=== PATIENT | female | born 1985 | race American Indian/Alaskan Native ===

== ENCOUNTER 2016-09-04 10:53 | Inpatient (IN) | payer OTHER ==
[2016-09-04 12:26] LABS: Hematocrit 21.2 % (30.3-42.9); Hemoglobin 6.4 gm/dl (10.1-14.3); Mean Corpuscular HGB Conc 30 % (30-34); Mean Corpuscular Volume 74 fl (79-97); Platelet Count 328 K/mm3 (140-440); Red Blood Count 2.86 M/mm3 (3.65-5.03); White Blood Count 2.9 K/mm3 (4.5-11.0)
[2016-09-04 12:27] LABS: Mean Corpuscular Hemoglobin 22 pg (28-32); Red Cell Distribution Width 31.3 % (13.2-15.2)
[2016-09-04 13:17] LABS: Basophils % (Manual) 0 % (0.0-1.8); Blastocytes % (Manual) 0 %
[2016-09-04 13:18] LABS: Anisocytosis 2+; Diff Status Complete; Elliptocytes Rare; Helmet Cells Rare; Hypochromasia 2+; Microcytosis 1+; Ovalocytes Few; Poikilocytosis 2+; Polychromasia 1+; Stomatocytes Rare; Target Cells Rare; Tear Drop Cells Few
[2016-09-04] MEDS ORDERED: NACL 0.9% 500 ML 500 ML IV ONE (20:40)
--- NOTE | 2016-09-04 21:10 | Emergency Department Report ---
ED Female HPI - General Chief complaint: Vaginal Bleeding Stated complaint: FELL DOWN STEPS/PASSED OUT Time Seen by Provider: 09/04/16 20:35 Source: patient, old records reviewed Mode of arrival: Ambulatory Limitations: No Limitations - History of Present Illness Initial comments: 31-year-old female with past medical history of pancreatitis, anemia, fibroids, and previous blood transfusion presents to the hospital complains of syncopal episode. Patient was walking down the stairs and states she felt lightheaded and passed out. She also has been experiencing dyspnea on exertion and fatigue. Patient having intermittent suprapubic abdominal pain, moderate in intensity and epigastric discomfort. No reports of nausea, vomiting, or dysuria. Patient has been bleeding continuously 1 month and using 1 pack (#28) of overnight pads every 3 days. Patient has not been compliant with her iron tablets. Patient does not follow up as outpatient with ENVIRONMENTAL TEST TECHNICIAN. Previous medical record review. Patient was admitted here January 2016 for acute pancreatitis secondary to alcohol use and signed out AMA. Patient states she has cut down on her alcohol intake and denies history of alcohol withdrawal tremors. - Related Data Home Medications Medication Instructions Recorded Confirmed Last Taken No Known Home Medications [No 09/04/16 09/04/16 Unknown Reported Home Medications] Allergies Allergy/AdvReac Type Severity Reaction Status Date / Time codeine Allergy Unknown Verified 09/04/16 11:30 ED Review of Systems ROS: Stated complaint: FELL DOWN STEPS/PASSED OUT Other details as noted in HPI Comment: All other systems reviewed and negative Other: Constitutional: No fevers chills Eyes: No eye pain visual changes ENT: No ear pain or throat pain Neck: Denies pain Respiratory: Denies cough wheezing Cardiovascular: Denies chest pain, palpitations GI: Denies abdominal pain, nausea, vomiting, diarrhea : Denies dysuria Musculoskeletal: Denies back pain Skin: Denies rash, lesions, erythema Neurologic: Denies headache, numbness, weakness Psychiatric: Denies suicidal ideation, hallucinations ED Past Medical Hx - Past Medical History Hx Congestive Heart Failure: No Hx Diabetes: No Hx Asthma: No Hx COPD: No Additional medical history: anemia. FIBROIDS. Alcohol abuse. Pancreatitis - Social History Smoking Status: Current Every Day Smoker Substance Use Type: Alcohol - Medications Home Medications: Home Medications Medication Instructions Recorded Confirmed Last Taken Type No Known Home Medications [No 09/04/16 09/04/16 Unknown History Reported Home Medications] ED Physical Exam - General Limitations: No Limitations - Other Other exam information: General: No limitations, patient is alert in no acute distress Head exam: Atraumatic, normocephalic Eyes exam: Normal appearance, pupils equal reactive to light, nonicteric sclera ENT: Moist mucous membrane, normal oropharynx Neck exam: Normal inspection, full range of motion Respiratory exam: Clear to auscultation bilateral, no wheezes, rales, crackles Cardiovascular: Normal rate and rhythm, normal heart sounds Abdomen: Soft, nondistended, mild epigastric tenderness, with normal bowel sounds, no rebound, or guarding Extremity: Full range of motion normal inspection no deformity Back: Normal Inspection, full range of motion, no tenderness Neurologic: Alert, oriented x3, cranial nerves intact, no motor or sensory deficit Psychiatric: normal affect, normal mood Skin: Warm, dry, intact ED Course Vital Signs 09/04/16 09/04/16 09/04/16 11:30 14:53 19:38 Temperature 98.3 F 97.7 F Pulse Rate 91 H 95 H 93 H Respiratory 18 16 20 Rate Blood Pressure 100/64 Blood Pressure 118/70 121/82 [Right] O2 Sat by Pulse 100 100 100 Oximetry - Consultations Consultation #1: 09/04/16 20:[address] Sandra Walker ENVIRONMENTAL TEST TECHNICIAN environmental compliance technician. Request ultrasound and hospitalist admission. They will consult. ED Medical Decision Making - Lab Data Result diagrams: 09/04/16 11:44 Lab Results 09/04/16 09/04/16 09/04/16 Range/Units 11:44 11:44 11:44 WBC 2.9 L (4.5-11.0) K/mm3 RBC 2.86 L (3.65-5.03) M/mm3 Hgb 6.4 L (10.1-14.3) gm/dl Hct 21.2 L (30.3-42.9) % MCV 74 L (79-97) fl MCH 22 L (28-32) pg MCHC 30 (30-34) % RDW 31.3 H (13.2-15.2) % Plt Count 328 (140-440) K/mm3 Lymph % (Auto) [employer] [place] % (Auto) [employer] Eos % (Auto) [employer] Server Baso % (Auto) [employer] Server Lymph # [employer] [place] # [employer] Eos # [employer] Server Baso # [employer] Server Add Manual Diff Complete Total Counted 100 Seg Neutrophils % [employer] Seg Neuts % (Manual) 40.0 (40.0-70.0) % Band Neutrophils % 0 % Lymphocytes % (Manual) 56.0 H (13.4-35.0) % Reactive Lymphs % (Man) 0 % Monocytes % (Manual) 0 (0.0-7.3) % Eosinophils % (Manual) 4.0 (0.0-4.3) % Basophils % (Manual) 0 (0.0-1.8) % Metamyelocytes % 0 % Myelocytes % 0 % Promyelocytes % 0 % Blast Cells % 0 % Nucleated RBC % 1.0 H (0.0-0.9) % Seg Neutrophils # [employer] Seg Neutrophils # Man 1.2 L (1.8-7.7) K/mm3 Band Neutrophils # 0.0 K/mm3 Lymphocytes # (Manual) 1.6 (1.2-5.4) K/mm3 Abs React Lymphs (Man) 0.0 K/mm3 Monocytes # (Manual) 0.0 (0.0-0.8) K/mm3 Eosinophils # (Manual) 0.1 (0.0-0.4) K/mm3 Basophils # (Manual) 0.0 (0.0-0.1) K/mm3 Metamyelocytes # 0.0 K/mm3 Myelocytes # 0.0 K/mm3 Promyelocytes # 0.0 K/mm3 Blast Cells # 0.0 K/mm3 WBC Morphology Not Reportable Hypersegmented Neuts Not Reportable Hyposegmented Neuts Not Reportable Hypogranular Neuts Not Reportable Smudge Cells Not Reportable Toxic Granulation Not Reportable Toxic Vacuolation Not Reportable Dohle Bodies Not Reportable Pelger-Huet Anomaly Not Reportable Sarah Rods Not Reportable Platelet Estimate Appears normal Clumped Platelets Not Reportable Plt Clumps, EDTA Not Reportable Large Platelets Not Reportable Giant Platelets Not Reportable Platelet Satelliting Not Reportable Plt Morphology Comment Not Reportable RBC Morphology Not Reportable Dimorphic RBCs Not Reportable Polychromasia 1+ Hypochromasia 2+ Poikilocytosis 2+ Anisocytosis 2+ Microcytosis 1+ Macrocytosis Not Reportable Spherocytes Not Reportable Pappenheimer Bodies Not Reportable Sickle Cells Not Reportable Target Cells Rare Tear Drop Cells Few Ovalocytes Few Stomatocytes Rare Helmet Cells Rare Farris-[place] Bodies Not Reportable [place] Rings Not Reportable Ricardo Cells Not Reportable Bite Cells Not Reportable Crenated Cell Not Reportable Elliptocytes Rare Acanthocytes (Spur) Not Reportable Rouleaux Not Reportable Hemoglobin C Crystals Not Reportable Schistocytes Not Reportable Malaria parasites Not Reportable Armando Bodies Not Reportable Hem Pathologist Commnt No HCG, Quant < 2 (0-4) mIU/mL Blood Type A POSITIVE Antibody Screen TNR WENDY Antibody Screen Negative Crossmatch See Detail - EKG Data -: EKG Interpreted by Me (nsr rate 100, ant t wave inv, prolonged qt) - Radiology Data Radiology results: report reviewed (US transvag/pelvic pending) - Medical Decision Making Patient had a syncopal episode secondary to symptomatic anemia. Patient be admitted to the hospital for for blood transfusion. ENVIRONMENTAL TEST TECHNICIAN has been consult. 2 units of PRBCs ordered and PENDING AT DISPOSITION - Differential Diagnosis anemia, arrhythmia, fibroids Critical Care Time: No Critical care attestation.: If time is entered above; I have spent that time in minutes in the direct care of this critically ill patient, excluding procedure time. ED Disposition Clinical Impression: Menorrhagia, Symptomatic anemia, Syncope, Fibroids Disposition: DC-09 OP ADMIT IP TO THIS HOSP Is pt being admited?: Yes Condition: Stable Time of Disposition: 21:15 (Dr Saleem/hosp)
[2016-09-04] MEDS ORDERED: MILK OF MAGNESIA PO PRN (21:39)
[2016-09-04] MEDS ORDERED: TYLENOL PO PRN (21:39)
[2016-09-04] MEDS ORDERED: ZOFRAN IV PRN (21:39)
[2016-09-04] MEDS ORDERED: MORPHINE IV PRN (21:39)
[2016-09-04] MEDS ORDERED: DULCOLAX PR PRN (21:39)
--- NOTE | 2016-09-04 21:43 | History and Physical Report ---
History of Present Illness Date of examination: 09/04/16 Date of admission: 09/04/16 Chief complaint: abnormal uterine bleeding, Generalized weakness,fatigue,and lightheadedness History of present illness: Patient is 31-year-old with history of uterine fibroids with menorrhagia. She presents with a 4 weeks of daily heavy abnormal uterine bleeding. She states she has been bleeding every day for 4 weeks heavy bleeding with clots. She now complains of generalized weakness, fatigue lightheadedness for 2 weeks. She denies any chest pain shortness of breath. In Emergency department hemoglobin was 6.4. She is been admitted for blood transfusion and further management. Ship/Rec/Doc Control consulted for evaluation. Past History Past Medical History: other (Uterine fibroids, menorrhagia,alcoholic pancreatitis) Past Surgical History: No surgical history Social history: , lives with family, smoking (half pack cigarettes a day) , alcohol abuse (once a week), full code Medications and Allergies Allergies Allergy/AdvReac Type Severity Reaction Status Date / Time codeine Allergy Unknown Verified 09/04/16 11:30 Home Medications Medication Instructions Recorded Confirmed Last Taken Type No Known Home Medications [No 09/04/16 09/04/16 Unknown History Reported Home Medications] Review of Systems All systems: negative (no chest pain, no headache, no urinary symptoms, no fever. All other systems reviewed and are negative) Exam - Physical Exam Narrative exam: General appearance: not in acute distress, HEENT: normocephalic, atraumatic Neck : supple, no JVD Lungs:clear to auscultation bilaterally, no crackles no wheezes Heart :S1 and S2 regular, no murmurs, rubs or gallop Abdomen: soft, non-tender, non-distended, normal bowel sounds Extremities: No edema, clubbing or cyanosis. Neuro : awake, alert, oriented x 3, no focal neurological signs, normal speech - Constitutional Vitals: Temp Pulse Resp BP Pulse Ox 97.7 F 93 H 20 121/82 100 09/04/16 14:53 09/04/16 19:38 09/04/16 19:38 09/04/16 19:38 09/04/16 19:38 Results - Labs CBC & Chem 7: 09/04/16 11:44 09/04/16 21:39 Labs: Abnormal lab results 09/04/16 09/04/16 Range/Units 11:44 11:44 WBC 2.9 L (4.5-11.0) K/mm3 RBC 2.86 L (3.65-5.03) M/mm3 Hgb 6.4 L (10.1-14.3) gm/dl Hct 21.2 L (30.3-42.9) % MCV 74 L (79-97) fl MCH 22 L (28-32) pg RDW 31.3 H (13.2-15.2) % Lymphocytes % (Manual) 56.0 H (13.4-35.0) % Nucleated RBC % 1.0 H (0.0-0.9) % Seg Neutrophils # Man 1.2 L (1.8-7.7) K/mm3 Crossmatch See Detail Assessment and Plan Symptomatic anemia due to acute blood loss. This is due to abnormal uterine bleeding from fibroids. Admit to medical surgical floor. Hemoglobin 6.4. We' ll transfuse 2 units PRBC. She has known history of fibroids. Ship/Rec/Doc Control on- call consulted. Pelvic ultrasound done, report pending. Abnormal uterine bleeding due to uterine fibroids. History of alcohol abuse. Uterine fibroid DVT prophylaxis with SCDs only, because of bleeding Full CODE STATUS
[2016-09-04 22:07] LABS: Anion Gap 20 mmol/L; Blood Urea Nitrogen 8 mg/dL (7-17); Carbon Dioxide 24 mmol/L (22-30); Chloride 102.9 mmol/L (98-107); Glucose 96 mg/dL (65-100); Potassium 3.6 mmol/L (3.6-5.0); Sodium 143 mmol/L (137-145)
--- NOTE | 2016-09-04 23:03 | Ultrasound Report ---
FINAL REPORT EXAM: US TRANSVAGINAL HISTORY: vag bleeding hx of fibroids COMPARISONS: None. FINDINGS: Transvaginal grayscale, color and spectral Doppler ultrasound evaluation of the pelvis Anteverted uterus measures 9.4 x 4.7 x 5.8 cm and contains several prominent heterogeneous fibroids, the largest of which is in the lower uterine segment measuring up to 8.4 cm. Fundal sub serosal fibroids measure up to 4.6 cm on the right and 4.1 cm on the left. Homogeneous endometrium measures approximately 7 millimeters in thickness. No endometrial distortion identified. No significant free fluid in the pelvis. The ovaries are not well visualized utilizing transvaginal technique. Please see transabdominal ultrasound of the same date. IMPRESSION: Several prominent uterine fibroids, the largest of which is in the lower uterine segment measuring up to 8.4 cm. No obvious endometrial distortion, with homogeneous normal appearing endometrium measuring 7 millimeters in thickness. Please see transabdominal ultrasound of the same date.
--- NOTE | 2016-09-04 23:07 | Ultrasound Report ---
FINAL REPORT EXAM: US PELVIC COMPLETE HISTORY: vag bleeding hx of fibroids COMPARISONS: None. FINDINGS: Transabdominal grayscale and color doppler ultrasound evaluation of the pelvis Anteverted uterus measures 9.4 x 4.7 x 5.8 cm and contains several prominent heterogeneous fibroids, the largest of which is in the lower uterine segment measuring up to 8.4 cm. Fundal sub serosal fibroids measure up to 4.6 cm on the right and 4.1 cm on the left. Homogeneous endometrium measures approximately 7 millimeters in thickness. No endometrial distortion identified. No significant free fluid in the pelvis. The right ovary measures 5.2 x 4.6 x 5.6 cm and contains a 4.3 centimeter slightly heterogeneous functional cystic lesion with scattered internal echoes. The left ovary is sonographically unremarkable and measures 2.7 x 2.3 x 2.5 cm. IMPRESSION: Several prominent uterine fibroids, the largest of which is in the lower uterine segment measuring up to 8.4 cm. No obvious endometrial distortion, with homogeneous normal appearing endometrium measuring 7 millimeters in thickness.
[2016-09-05] MEDS ORDERED: NACL 0.9% 500 ML 500 ML IV ONE (01:00)
--- NOTE | 2016-09-05 08:08 | Admit Criteria Form ---
Admission Criteria Documentation: ANEMIA, IRON DEFICIENCY OR UNSPECIFIED Clinical Indications for Inpatient Care (Place 'X' for any and all applicable criteria): Admission is indicated for ANY ONE of the following(1)(2)(3)(4)(5)(6)(7): [X] I. Inpatient admission required rather than observation care (Also use Anemia, Iron Deficiency or Unspecified: Observation Care guideline as appropriate) because of ANY ONE of the following: [] a) Hemodynamic instability that is severe or persistent [] b) Active bleeding that cannot be rapidly controlled [] c) CVS symptoms (i.e., dyspnea, chest pain, heart failure) that are severe or persistent [] d) Neurologic symptoms (i.e., cognitive impairment, recurrent syncope or near syncope) that are severe or persistent [] e) Cardiac arrhythmias of immediate concern [] f) Acute peripheral ischemia (e.g., pulseless, cool, mottled, or cyanotic extremity) [] g) High-risk low platelet count [] h) Acute renal failure [] i) Ongoing transfusion for blood loss (greater than 2 units) [] j) IV fluid to replace significant ongoing (eg, >24 hours) losses (> 3 L/m2 per day) [] k) Pulmonary artery catheter monitoring [] l) Supplemental oxygen or respiratory treatments for over 24 hours that are performable only in acute inpatient setting [] m) Immediate inpatient surgery [X] n) Other condition, treatment or monitoring requiring inpatient admission [] II Active massive hemorrhage [] III. Active hemolysis with rapidly progressive anemia [A](6) Extended stay beyond goal length of stay may be needed for (17)(18) []a) Diagnosed cause of anemia requiring longer hospitalization (eg, active GI bleeding, immune hemolysis requiring electrophoresis, complications of malignancy requiring acute care []b) Continued emergent anemia indicators (23) []c) Transfusion reactions []d) Associated leukopenia or thrombocytopenia needing inpatient care []e) Active comorbidities (eg, renal failure, heart failure) The original [facility] Care Guidelines content created by [facility] Care Guidelines has been revised. The portions of the content which have been revised are identified through the use of italic text or in bold. [facility] Guidelines has neither reviewed nor approved the modified material. All other unmodified content is copyright [facility] Care Guidelines. Please see references footnoted in the original [facility] edition 2016 Admission Criteria Met: Yes
[2016-09-05 10:30] LABS: Hematocrit 22.9 % (30.3-42.9); Hemoglobin 7.3 gm/dl (10.1-14.3); Mean Corpuscular HGB Conc 32 % (30-34); Mean Corpuscular Volume 76 fl (79-97); Platelet Count 208 K/mm3 (140-440); White Blood Count 3.6 K/mm3 (4.5-11.0)
[2016-09-05 10:31] LABS: Mean Corpuscular Hemoglobin 24 pg (28-32); Red Cell Distribution Width 27.5 % (13.2-15.2)
[2016-09-05 11:21] LABS: Blastocytes % (Manual) 0 %
[2016-09-05 11:22] LABS: Anisocytosis 3+; Diff Status Complete; Elliptocytes Rare; Helmet Cells Rare; Hypochromasia 1+; Microcytosis 1+; Ovalocytes Few; Poikilocytosis 2+; Polychromasia 1+; Stomatocytes Rare; Target Cells Rare; Tear Drop Cells Few
--- NOTE | 2016-09-05 11:37 | Discharge Summary ---
Providers - Providers Date of Admission: 09/04/16 21:39 Date of discharge: 09/05/16 Attending physician: KIM RAZO Primary care physician: TRA SHARIF MD Hospitalization Condition: Stable Hospital course: 1. Acute on chronic blood loss anemia due to uterine fibroids. 2. Uterine leiomyoma: She needs outpatient follow-up with [employer] 3. Microcytic Anemia requiring 2 units prbc 4. Alcohol abuse: Counseling done Disposition: DC-30 STILL A PATIENT Time spent for discharge: 34 minutes Core Measure Documentation - Palliative Care Palliative Care/ Comfort Measures: Not Applicable - Core Measures Any of the following diagnoses?: none - VTE Discharge Requirements Deep Vein Thrombosis/Pulmonary Embolism Present on Admission: No Has pt received <5 days of overlap therapy or INR<2.0: No Anticoagulant overlap therapy prescribed at discharge: No Contraindication No Overlap Therapy order at DC: Not Indicated Exam - Physical Exam Narrative exam: GEN: WDWN, NAD, AWAKE, ALERT, ORIENTATED x 3 CVS: RRR, NORMAL S1S2 LUNGS/CHEST: CTA B, NORMAL CHEST EXPANSION B, GOOD AIR ENTRY B ABD: SOFT, NTND, GBS, NO REBOUND OR GUARDING EXT/SKIN: NO SIGNIFICANT EDEMA OR RASH MSK: FROM X 4 EXTREMITIES NEURO: CN 2-12 GROSSLY INTACT, NO FOCAL DEFICITS PSY: CALM - Constitutional Vitals: Temp Pulse Resp BP Pulse Ox 98.7 F 84 18 114/65 100 09/05/16 07:11 09/05/16 07:11 09/05/16 07:11 09/05/16 07:11 09/05/16 07:00 Plan Activity: other (no strenous activites until cleared by PCP. ) Diet: regular Follow up with: TRA SHARIF MD [Primary Care Provider] - 7 Days LUL HEARD MD [Staff Physician] - 7 Days Prescriptions: Ascorbic Acid [Vitamin C] 500 mg PO BID #60 tablet Docusate Sodium [Colace] 100 mg PO DAILY #30 capsule Ferrous Gluconate [Fergon 325 MG tab] 325 mg PO TID #90 tablet
--- NOTE | 2016-09-05 16:01 | Consultation ---
History of Present Illness Consult date: 09/05/16 Reason for consult: menorrhagia, pelvic mass, other (severe anemia ) History of present illness: This is a 31 yo G0 LMP currently here for admitted yesterday for symptomatic of severe anemia. She states that she has had this issue for the last 2 years in which she was hospitalized for severe anemia in which she was dx with uterine fibroids. She states that she was placed on iron andn ocps and has stopped taking medication. She is here for syncopal episode with severe anemia Past History Past Medical History: hypertension, pancreatitis Past Surgical History: no surgical history F[employer] MODEL History: denies: abnormal PAP smear Family/Genetic History: cancer (grandfather with colon cancer) Social history: , smoking, alcohol abuse (occasional ). denies: prescription drug abuse, IV drug use Medications and Allergies Allergies Allergy/AdvReac Type Severity Reaction Status Date / Time codeine Allergy Unknown Verified 09/04/16 11:30 Home Medications Medication Instructions Recorded Confirmed Last Taken Type Ascorbic Acid [Vitamin C] 500 mg PO BID #60 tablet 09/05/16 Unknown Rx Docusate Sodium [Colace] 100 mg PO DAILY #30 capsule 09/05/16 Unknown Rx Ferrous Gluconate [Fergon 325 MG 325 mg PO TID #90 tablet 09/05/16 Unknown Rx tab] Active Meds: Active Medications Acetaminophen (Tylenol) 650 mg PO Q4H PRN PRN Reason: Pain MILD(1-3)/Fever >100.5/UMANZOR Last Admin: 09/05/16 00:52 Dose: 650 mg Bisacodyl (Dulcolax) 10 mg OK QDAY PRN PRN Reason: Constipation unrelieved by MOM Magnesium Hydroxide (Milk Of Magnesia) 30 ml PO Q4H PRN PRN Reason: Constipation Ondansetron HCl (Zofran) 4 mg IV Q6H PRN PRN Reason: nausea or vomiting Review of Systems All systems: negative Constitutional: fatigue, weakness Cardiovascular: syncope Genitourinary: vaginal bleeding, pelvic pain - Vital Signs Vital signs: Vital Signs Temp Pulse Resp BP Pulse Ox 98.3 F 91 H 18 100/64 100 09/04/16 11:30 09/04/16 11:30 09/04/16 11:30 09/04/16 11:30 09/04/16 11:30 Temp Pulse Resp BP Pulse Ox 98.7 F 84 20 114/65 100 09/05/16 07:11 09/05/16 07:11 09/05/16 12:34 09/05/16 07:11 09/05/16 07:00 - Physical Exam Breasts: Positive: deferred Cardiovascular: Regular rate, Normal S1 Lungs: Positive: Clear to auscultation, Normal air movement Abdomen: Positive: normal appearance, soft, tenderness, mass. Negative: distention, normal bowel sounds Genitourinary (Female): Positive: normal external genitalia, normal perenium Vulva: both: normal Vagina: Positive: normal moisture Cervix: Negative: lesion Uterus: Positive: enlarged, nodular, tender (minimal ), other (large mass 8cm at araceli uterie segment in posterior cul de sac ) Anus/Rectum: Positive: normal perianal skin Extremities: Positive: normal Deep Tendon Reflex Grade: Normal +2 Results Result Diagrams: 09/05/16 09:55 09/04/16 21:39 Abnormal lab results 09/05/16 Range/Units 09:55 WBC 3.6 L (4.5-11.0) K/mm3 RBC 3.00 L (3.65-5.03) M/mm3 Hgb 7.3 L (10.1-14.3) gm/dl Hct 22.9 L (30.3-42.9) % MCV 76 L (79-97) fl MCH 24 L (28-32) pg RDW 27.5 H (13.2-15.2) % Basophils % (Manual) 3.0 H (0.0-1.8) % Lymphocytes # (Manual) 1.0 L (1.2-5.4) K/mm3 All other labs normal. Ultrasound: report reviewed Assessment and Plan A/P HD#1 Menorrhagia Chronic anemia ( severe) Uterine fibroids Recommnedations Agree with blood transfusion consider depo for amenorrhea discussed all treatment plans which include expectant with iron /vit c consider hormonal ie iud vs depo vs nexplanon consider surgical ie myomectomy ( patient desires fertility ) patient reviewed options and will f/u in clinic in 1 weeks for further mgt options and scheduling of treatment
[2016-09-05 18:59] VITALS: BP 131/90
== END 2016-09-05 19:27 | disposition home or self-care (01) | DRG 760 ==
LOC: ED 10:53 → 3A 21:39
PROVIDERS: ADMIT Internal Medicine; ATTEND Internal Medicine
PROC: 30233N1 Transfusion of Nonautologous Red Blood Cells into Peripheral Vein, Percutaneous Approach (ICD-10-PCS; principal; 2016-09-04)
DX: D25.9 Leiomyoma of uterus, unspecified (principal); D62 Acute posthemorrhagic anemia; N93.9 Abnormal uterine and vaginal bleeding, unspecified; F17.210 Nicotine dependence, cigarettes, uncomplicated; F10.10 Alcohol abuse, uncomplicated; D50.0 Iron deficiency anemia secondary to blood loss (chronic); I10 Essential (primary) hypertension; Z88.8 Allergy status to other drugs, medicaments and biological substances; Z87.42 Personal history of other diseases of the female genital tract; Z87.19 Personal history of other diseases of the digestive system; Z80.0 Family history of malignant neoplasm of digestive organs; Z71.41 Alcohol abuse counseling and surveillance of alcoholic
CPT/HCPCS: 36415; 76830; 76856; 80048; 84702; 85007; 85025; 86850; 86900; 86901; 86920; 93005; 93010; 99285; 99406; J7040; P9016

== ENCOUNTER 2018-08-12 18:12 | Inpatient (IN) | payer SELFPAY ==
--- NOTE | 2018-08-12 18:16 | Emergency Department Report ---
Blank Doc - Documentation Documentation: This is a 33-year-old female that presents with generilzed weakness and saw PCP which was told that H/H was low and to come to the ED. This initial assessment/diagnostic orders/clinical plan/treatment(s) is/are subject to change based on patient's health status, clinical progression and re- assessment by fellow clinical providers in the ED. Further treatment and workup at subsequent clinical providers discretion. Patient/guardians urged not to elope from the ED as their condition may be serious if not clinically assessed and managed. Initial orders include: 1- Patient sent to MAIN ED for further evaluation and treatment 2- labs
[2018-08-12 18:58] LABS: Mean Corpuscular HGB Conc 29 % (30-34); Mean Corpuscular Volume 73 fl (79-97); Platelet Count 365 K/mm3 (140-440); Red Blood Count 2.14 M/mm3 (3.65-5.03)
--- NOTE | 2018-08-12 18:59 | Emergency Department Report ---
ED General Adult HPI - General Chief complaint: Medical Clearance Stated complaint: ABNORMAL LABS Time Seen by Provider: 08/12/18 18:15 Source: patient Mode of arrival: Ambulatory Limitations: No Limitations - History of Present Illness Initial comments: patient presents to the ED for an abnormal lab value. The patient states she has significant vaginal bleeding from fibroids and has had a blood transfusion for it. Last transfusion was a year ago per the patient. The patient states that she had a hemoglobin checked yesterday at her physician's office intervention was called due to low hemoglobin of 4.2. Patient denies chest pain, but does endorse some shortness of breath with exertion. -: Gradual Severity scale (0 -10): 0 Improves with: none Worsens with: none Associated Symptoms: denies other symptoms Treatments Prior to Arrival: none - Related Data Previous Rx's Medication Instructions Recorded Last Taken Type Ascorbic Acid [Vitamin C] 500 mg PO BID #60 tablet 09/05/16 Unknown Rx Docusate Sodium [Colace] 100 mg PO DAILY #30 capsule 09/05/16 Unknown Rx Ferrous Gluconate [Fergon 325 MG 325 mg PO TID #90 tablet 09/05/16 Unknown Rx tab] Allergies Allergy/AdvReac Type Severity Reaction Status Date / Time codeine Allergy Unknown Verified 09/04/16 11:30 ED Review of Systems ROS: Stated complaint: ABNORMAL LABS Other details as noted in HPI Comment: All other systems reviewed and negative Constitutional: denies: chills, fever Eyes: denies: eye pain, eye discharge, vision change ENT: denies: ear pain, throat pain Respiratory: denies: cough, shortness of breath, wheezing Cardiovascular: denies: chest pain, palpitations Endocrine: no symptoms reported Gastrointestinal: denies: abdominal pain, nausea, diarrhea Genitourinary: denies: urgency, dysuria, discharge Musculoskeletal: denies: back pain, joint swelling, arthralgia Skin: denies: rash, lesions Neurological: denies: headache, weakness, paresthesias Psychiatric: denies: anxiety, depression Hematological/Lymphatic: denies: easy bleeding, easy bruising ED Past Medical Hx - Past Medical History Previous Medical History?: Yes Hx Congestive Heart Failure: No Hx Diabetes: No Hx Asthma: No Hx COPD: No Additional medical history: anemia. FIBROIDS. Alcohol abuse. Pancreatitis - Surgical History Past Surgical History?: No - Social History Smoking Status: Current Every Day Smoker Substance Use Type: Alcohol, Marijuana - Medications Home Medications: Home Medications Medication Instructions Recorded Confirmed Last Taken Type Ascorbic Acid [Vitamin C] 500 mg PO BID #60 tablet 09/05/16 Unknown Rx Docusate Sodium [Colace] 100 mg PO DAILY #30 capsule 09/05/16 Unknown Rx Ferrous Gluconate [Fergon 325 MG 325 mg PO TID #90 tablet 09/05/16 Unknown Rx tab] ED Physical Exam - General Limitations: No Limitations General appearance: alert, in no apparent distress - Head Head exam: Present: atraumatic, normocephalic - Eye Eye exam: Present: PERRL, EOMI, scleral icterus - ENT ENT exam: Present: mucous membranes moist - Neck Neck exam: Present: normal inspection - Respiratory Respiratory exam: Present: normal lung sounds bilaterally. Absent: respiratory distress - Cardiovascular Cardiovascular Exam: Present: normal rhythm, tachycardia. Absent: systolic murmur, diastolic murmur, rubs, gallop - GI/Abdominal GI/Abdominal exam: Present: soft, normal bowel sounds. Absent: distended, tenderness - Extremities Exam Extremities exam: Present: normal inspection - Back Exam Back exam: Present: normal inspection - Neurological Exam Neurological exam: Present: alert, oriented X3, CN II-XII intact. Absent: motor sensory deficit - Psychiatric Psychiatric exam: Present: normal affect, normal mood - Skin Skin exam: Present: warm, dry, intact, normal color. Absent: rash ED Course Vital Signs 08/12/18 08/12/18 08/12/18 18:16 18:35 19:00 Temperature 98.7 F Pulse Rate 143 H 122 H Respiratory 16 18 18 Rate Blood Pressure 129/77 Blood Pressure 126/75 [Left] O2 Sat by Pulse 100 100 100 Oximetry ED Medical Decision Making - Lab Data Result diagrams: 08/12/18 Unknown 08/12/18 Unknown Lab Results 08/12/18 08/12/18 08/12/18 Range/Units Unknown Unknown Unknown WBC 4.5 (4.5-11.0) K/mm3 RBC 2.14 L (3.65-5.03) M/mm3 Hgb 4.5 L* (10.1-14.3) gm/dl Hct 15.5 L* (30.3-42.9) % MCV 73 L (79-97) fl MCH 21 L (28-32) pg MCHC 29 L (30-34) % RDW 21.2 H (13.2-15.2) % Plt Count 365 (140-440) K/mm3 Lymph % (Auto) 42.9 H (13.4-35.0) % [place] % (Auto) 8.1 H (0.0-7.3) % Eos % (Auto) 0.9 (0.0-4.3) % Baso % (Auto) 1.0 (0.0-1.8) % Lymph # 1.9 (1.2-5.4) K/mm3 [place] # 0.4 (0.0-0.8) K/mm3 Eos # 0.0 (0.0-0.4) K/mm3 Baso # 0.0 (0.0-0.1) K/mm3 Seg Neutrophils % 47.1 (40.0-70.0) % Seg Neutrophils # 2.1 (1.8-7.7) K/mm3 PT (12.2-14.9) Sec. INR (0.87-1.13) APTT (24.2-36.6) Sec. Sodium 141 (137-145) mmol/L Potassium 3.1 L (3.6-5.0) mmol/L Chloride 102.4 (98-107) mmol/L Carbon Dioxide 23 (22-30) mmol/L Anion Gap 19 mmol/L BUN 3 L (7-17) mg/dL Creatinine 0.3 L (0.7-1.2) mg/dL Estimated GFR > 60 ml/min BUN/Creatinine Ratio 10 % Glucose 113 H (65-100) mg/dL Calcium 8.8 (8.4-10.2) mg/dL Total Bilirubin 0.90 (0.1-1.2) mg/dL AST 77 H (5-40) units/L ALT 28 (7-56) units/L Alkaline Phosphatase 189 H (35-129) units/L Albumin 3.2 L (3.9-5) g/dL HCG, Qual Negative (Negative) 08/12/18 Range/Units Unknown WBC (4.5-11.0) K/mm3 RBC (3.65-5.03) M/mm3 Hgb (10.1-14.3) gm/dl Hct (30.3-42.9) % MCV (79-97) fl MCH (28-32) pg MCHC (30-34) % RDW (13.2-15.2) % Plt Count (140-440) K/mm3 Lymph % (Auto) (13.4-35.0) % [place] % (Auto) (0.0-7.3) % Eos % (Auto) (0.0-4.3) % Baso % (Auto) (0.0-1.8) % Lymph # (1.2-5.4) K/mm3 [place] # (0.0-0.8) K/mm3 Eos # (0.0-0.4) K/mm3 Baso # (0.0-0.1) K/mm3 Seg Neutrophils % (40.0-70.0) % Seg Neutrophils # (1.8-7.7) K/mm3 PT 13.9 (12.2-14.9) Sec. INR 1.01 (0.87-1.13) APTT 26.7 (24.2-36.6) Sec. Sodium (137-145) mmol/L Potassium (3.6-5.0) mmol/L Chloride (98-107) mmol/L Carbon Dioxide (22-30) mmol/L Anion Gap mmol/L BUN (7-17) mg/dL Creatinine (0.7-1.2) mg/dL Estimated GFR ml/min BUN/Creatinine Ratio % Glucose (65-100) mg/dL Calcium (8.4-10.2) mg/dL Total Bilirubin (0.1-1.2) mg/dL AST (5-40) units/L ALT (7-56) units/L Alkaline Phosphatase (35-129) units/L Albumin (3.9-5) g/dL HCG, Qual (Negative) - Medical Decision Making results discussed with patient 3 units of PRBCs ordered transfusion started in the ED Critical Care Time: Yes Critical care time in (mins) excluding proc time.: 35 Critical care attestation.: If time is entered above; I have spent that time in minutes in the direct care of this critically ill patient, excluding procedure time. ED Disposition Clinical Impression: Anemia requiring transfusions Disposition: OP ADMIT IP TO THIS HOSP Is pt being admited?: Yes Does the pt Need Aspirin: No Condition: Fair
[2018-08-12 19:09] LABS: Hematocrit 15.5 % (30.3-42.9); Hemoglobin 4.5 gm/dl (10.1-14.3); Lymphocytes % (Auto) 42.9 % (13.4-35.0); Red Cell Distribution Width 21.2 % (13.2-15.2)
[2018-08-12 19:10] LABS: Eosinophils % (Auto) 0.9 % (0.0-4.3); Lymphocytes # (Auto) 1.9 K/mm3 (1.2-5.4); Monocytes # (Auto) 0.4 K/mm3 (0.0-0.8); Monocytes % (Auto) 8.1 % (0.0-7.3)
[2018-08-12 19:12] LABS: INR 1.01 (0.87-1.13)
[2018-08-12 19:13] LABS: Partial Thromboplastin Time 26.7 Sec. (24.2-36.6)
[2018-08-12] MEDS ORDERED: NACL 0.9% 500 ML 500 ML IV ONE (19:13)
[2018-08-12 19:14] LABS: Alanine Aminotransferase 28 units/L (7-56); Albumin 3.2 g/dL (3.9-5); BUN/Creatinine Ratio 10; Blood Urea Nitrogen 3 mg/dL (7-17); Calcium 8.8 mg/dL (8.4-10.2); Hemolysis Index 37
[2018-08-12 20:00] LABS: Bacteria,Urine 1+ /HPF (Negative); Bilirubin,Urine NEG (Negative); Blood,Urine SM (Negative); Color,Urine Amber (Yellow); Mucus,Urine FEW /HPF
[2018-08-12 20:03] LABS: Bilirubin,Direct 0.5 mg/dL (0-0.2)
[2018-08-12] MEDS ORDERED: NACL 0.9% 500 ML 500 ML ONE (21:38)
[2018-08-12] MEDS ORDERED: ZOFRAN IV PRN (22:13)
[2018-08-12] MEDS ORDERED: SODIUM CHLORIDE FLUSH SYRINGE 10 ML IV PRN (22:13)
[2018-08-12] MEDS ORDERED: AMBIEN PO PRN (22:13)
--- NOTE | 2018-08-12 22:56 | History and Physical Report ---
History of Present Illness Date of examination: 08/12/18 Date of admission: 08/12/18 22:13 Chief complaint: low blood count History of present illness: Patient is a 33-year-old -Filipino female with history of uterine fibroid and chronic anemia who presented to the ED on account of low blood count. Patient stated that she had labs drawn at her primary care physician's office and today she got a phone call informing her that she needed to go to the ED bec ause her blood count is low. She admits to generalized weakness, shortness of breath on mild exertion, headaches, nausea, vomiting and dizziness. She also has positive history of passage of dark stool and upper abdominal pain. No syncope or LOC. patient has irregular menstrual period which is heavy with associated clots. Past History Past Medical History: anemia (s/p blood transfusion), other (uterine fibroid) Past Surgical History: No surgical history Social history: smoking (patient has 16 years history of cigarette smoking. She currently smokes 1-2 packs per day. ), alcohol abuse (patient has 15 years history of alcohol abuse. Her last drink was yesterday. She uses marijuana occasionally but denies other illicit drug use) Family history: diabetes (grandmother), hypertension (mother), other (multiple family members have fibroid) Medications and Allergies Allergies Allergy/AdvReac Type Severity Reaction Status Date / Time codeine Allergy Unknown Verified 09/04/16 11:30 Home Medications Medication Instructions Recorded Confirmed Last Taken Type Ascorbic Acid [Vitamin C] 500 mg PO BID #60 tablet 09/05/16 08/12/18 Unknown Rx Docusate Sodium [Colace] 100 mg PO DAILY #30 capsule 09/05/16 08/12/18 Unknown Rx Ferrous Gluconate [Fergon 325 MG 325 mg PO TID #90 tablet 09/05/16 08/12/18 Unknown Rx tab] Active Meds: Active Medications Acetaminophen (Tylenol) 650 mg PO Q4H PRN PRN Reason: Pain MILD(1-3)/Fever >100.5/UMANZOR Ondansetron HCl (Zofran) 4 mg IV Q8H PRN PRN Reason: Nausea And Vomiting Potassium Chloride (K-Dur) 40 meq PO Q4H JONNY Stop: 08/13/18 03:01 Sodium Chloride (Sodium Chloride Flush Syringe 10 Ml) 10 ml IV BID JONNY Sodium Chloride (Sodium Chloride Flush Syringe 10 Ml) 10 ml IV PRN PRN PRN Reason: LINE FLUSH Zolpidem Tartrate (Ambien) 5 mg PO QHS PRN PRN Reason: Insomnia Review of Systems All systems: negative (except as documented in the HPI, 14 point system reviewed were negative) Exam - Constitutional Vitals: Temp Pulse Resp BP Pulse Ox 98.8 F 88 18 108/71 100 08/12/18 22:41 08/12/18 22:41 08/12/18 22:41 08/12/18 22:41 08/12/18 22:41 General appearance: Present: no acute distress - EENT Eyes: Present: PERRL, EOM intact (pale conjunctiva) ENT: hearing intact, clear oral mucosa - Neck Neck: Present: supple, normal ROM - Respiratory Respiratory effort: normal Respiratory: bilateral: CTA - Cardiovascular Rhythm: regular Heart Sounds: Present: S1 & S2 - Extremities Extremities: No edema Peripheral Pulses: within normal limits - Abdominal General gastrointestinal: Present: tender (epigastric tenderness), distended, normal bowel sounds, other (firm on palpation) Female genitourinary: Present: deferred - Rectal Rectal Exam: deferred - Integumentary Integumentary: Present: clear, warm, dry, pale - Musculoskeletal Musculoskeletal: strength equal bilaterally - Psychiatric Psychiatric: appropriate mood/affect, intact judgment & insight - Neurologic Neurologic: CNII-XII intact Results - Labs CBC & Chem 7: 08/12/18 Unknown 08/12/18 Unknown Labs: Laboratory Last Values WBC 4.5 K/mm3 (4.5-11.0) 08/12/18 Unknown RBC 2.14 M/mm3 (3.65-5.03) L 08/12/18 Unknown Hgb 4.5 gm/dl (10.1-14.3) L* 08/12/18 Unknown Hct 15.5 % (30.3-42.9) L* 08/12/18 Unknown MCV 73 fl (79-97) L 08/12/18 Unknown MCH 21 pg (28-32) L 08/12/18 Unknown MCHC 29 % (30-34) L 08/12/18 Unknown RDW 21.2 % (13.2-15.2) H 08/12/18 Unknown Plt Count 365 K/mm3 (140-440) 08/12/18 Unknown Lymph % (Auto) 42.9 % (13.4-35.0) H 08/12/[address] [place] % (Auto) 8.1 % (0.0-7.3) H 08/12/18 Unknown Eos % (Auto) 0.9 % (0.0-4.3) 08/12/18 Unknown Baso % (Auto) 1.0 % (0.0-1.8) 08/12/18 Unknown Lymph # 1.9 K/mm3 (1.2-5.4) 08/12/[address] [place] # 0.4 K/mm3 (0.0-0.8) 08/12/18 Unknown Eos # 0.0 K/mm3 (0.0-0.4) 08/12/18 Unknown Baso # 0.0 K/mm3 (0.0-0.1) 08/12/18 Unknown Seg Neutrophils % 47.1 % (40.0-70.0) 08/12/18 Unknown Seg Neutrophils # 2.1 K/mm3 (1.8-7.7) 08/12/18 Unknown PT 13.9 Sec. (12.2-14.9) 08/12/18 Unknown INR 1.01 (0.87-1.13) 08/12/18 Unknown APTT 26.7 Sec. (24.2-36.6) 08/12/18 Unknown Sodium 141 mmol/L (137-145) 08/12/18 Unknown Potassium 3.1 mmol/L (3.6-5.0) L 08/12/18 Unknown Chloride 102.4 mmol/L (98-107) 08/12/18 Unknown Carbon Dioxide 23 mmol/L (22-30) 08/12/18 Unknown 19 mmol/L 08/12/18 Unknown BUN 3 mg/dL (7-17) L 08/12/18 Unknown 0.3 mg/dL (0.7-1.2) L 08/12/18 Unknown Estimated GFR > 60 ml/min 08/12/18 Unknown 10 % 08/12/18 Unknown Glucose 113 mg/dL (65-100) H 08/12/18 Unknown Calcium 8.8 mg/dL (8.4-10.2) 08/12/18 Unknown 0.90 mg/dL (0.1-1.2) 08/12/18 Unknown 0.5 mg/dL (0-0.2) H 08/12/18 Unknown 0.4 mg/dL 08/12/18 Unknown AST 77 units/L (5-40) H 08/12/18 Unknown ALT 28 units/L (7-56) 08/12/18 Unknown 189 units/L (35-129) H 08/12/18 Unknown 7.4 g/dL (6.3-8.2) 08/12/18 Unknown 3.2 g/dL (3.9-5) L 08/12/18 Unknown 0.8 % 08/12/18 Unknown HCG, Qual Negative (Negative) 08/12/18 Unknown Pepper (Yellow) 08/12/18 19:39 Cloudy (Clear) 08/12/18 19:39 5.0 (5.0-7.0) 08/12/18 19:39 Ur Specific [place] 1.020 (1.003-1.030) 08/12/18 19:39 30 mg/dl mg/dL (Negative) 08/12/18 19:39 50 mg/dL (Negative) 08/12/18 19:39 Neg mg/dL (Negative) 08/12/18 19:39 Sm (Negative) 08/12/18 19:39 Neg (Negative) 08/12/18 19:39 Neg (Negative) 08/12/18 19:39 4.0 mg/dL (<2.0) 08/12/18 19:39 Ur Leukocyte Esterase Mod (Negative) 08/12/18 19:39 8.0 /HPF (0.0-6.0) H 08/12/18 19:39 7.0 /HPF (0.0-6.0) 08/12/18 19:39 U Epithel Cells (Auto) 19.0 /HPF (0-13.0) H 08/12/18 19:39 1+ /HPF (Negative) 08/12/18 19:39 Few /HPF 08/12/18 19:39 Blood Type A POSITIVE 08/12/18 18:45 Antibody Screen TNR 08/12/18 18:45 WENDY Antibody Screen Negative 08/12/18 18:45 Crossmatch See Detail 08/12/18 18:45 Assessment and Plan Assessment and plan: Acute on chronic blood loss anemia -Secondary to uterine fibroid -Patient is scheduled to receive 3 units of PRBCS -We will monitor her H&H Hypokalemia -On repletion, we'll monitor k level -We will check magnesium level Uterine fibroid -Patient is being followed by gynecology on outpatient Abnormal LFT -Likely secondary to alcohol abuse History of alcohol and tobacco abuse -On alcohol withdrawal prophylaxis -Patient counseled on cessation DVT prophylaxis with SCD Disposition: For discharge when medically stable Time spent: 40 minutes
[2018-08-12] MEDS ORDERED: TYLENOL ONE (22:58)
[2018-08-12] MEDS: TYLENOL PO PRN (23:00)
[2018-08-12] MEDS: K-DUR PO SCH (23:01)
[2018-08-12] MEDS ORDERED: K-DUR PO ONE (23:01)
[2018-08-13] MEDS ORDERED: ATIVAN IV PRN (00:16)
[2018-08-13] MEDS: K-DUR PO SCH (03:23)
[2018-08-13 04:59] LABS: Hemoglobin 6.5 gm/dl (10.1-14.3)
[2018-08-13 05:24] LABS: BUN/Creatinine Ratio 20; Blood Urea Nitrogen 6 mg/dL (7-17); Calcium 8.2 mg/dL (8.4-10.2); Hemolysis Index 1
[2018-08-13] MEDS ORDERED: NACL 0.9% 500 ML 500 ML IV ONE (09:00)
[2018-08-13] MEDS: VITAMIN B-1 PO SCH (09:42)
[2018-08-13] MEDS: FOLVITE PO SCH (09:42)
[2018-08-13] MEDS: PERCOCET 5/325 PO PRN ×2 (12:41→21:42)
[2018-08-13] MEDS: SODIUM CHLORIDE FLUSH SYRINGE 10 ML IV SCH (12:42)
[2018-08-13] MEDS: HABITROL TD SCH (12:43)
--- NOTE | 2018-08-13 17:42 | Progress Note ---
Assessment and Plan Acute on chronic blood loss anemia -Secondary to uterine fibroid -Patient is scheduled to receive 3 units of PRBCS -We will monitor her H&H Hypokalemia -On repletion, we'll monitor k level -We will check magnesium level Uterine fibroid -Patient is being followed by gynecology on outpatient Abnormal LFT -Likely secondary to alcohol abuse History of alcohol and tobacco abuse -On alcohol withdrawal prophylaxis -Patient counseled on cessation DVT prophylaxis with SCD [facility] consult requested for fibroids and menorrhagia Disposition: For discharge tomorrow after blood transfusion Subjective Date of service: 08/13/18 Principal diagnosis: symptomatic anemia Interval history: Patient is a 33-year-old -Filipino female with history of uterine fibroid and chronic anemia who presented to the ED on account of low blood count. Patient stated that she had labs drawn at her primary care physician's office and today she got a phone call informing her that she needed to go to the ED because her blood count is low. She admits to generalized weakness, shortness of breath on mild exertion, headaches, nausea, vomiting and dizziness. She also has positive history of passage of dark stool and upper abdominal pain. No syncope or LOC. patient has irregular menstrual period which is heavy with associated clots. Objective - Constitutional Vitals: Vital Signs - 12hr 08/13/18 08/13/18 08/13/18 11:07 11:59 13:41 Temperature 97.4 F L 98.0 F Pulse Rate 64 67 Respiratory 16 18 16 Rate Blood Pressure 131/96 Blood Pressure 134/84 [Left] O2 Sat by Pulse 100 99 Oximetry 08/13/18 08/13/18 08/13/18 14:19 14:34 15:04 Temperature 97.7 F 97.7 F 97.6 F Pulse Rate 64 65 61 Respiratory 116 H 18 16 Rate Blood Pressure 128/93 133/95 140/99 Blood Pressure [Left] O2 Sat by Pulse 97 Oximetry 08/13/18 08/13/18 08/13/18 15:34 16:04 16:28 Temperature 97.5 F L 97.5 F L Pulse Rate 67 66 65 Respiratory 16 16 16 Rate Blood Pressure 163/11 133/86 136/98 Blood Pressure [Left] O2 Sat by Pulse 99 Oximetry General appearance: Present: no acute distress, well-nourished - EENT Eyes: PERRL, EOM intact ENT: hearing intact, clear oral mucosa Ears: bilateral: normal - Neck Neck: supple, normal ROM - Respiratory Respiratory effort: normal Respiratory: bilateral: CTA - Breasts Breasts: normal - Cardiovascular Heart rate: 76 Rhythm: regular Heart Sounds: Present: S1 & S2. Absent: gallop, rub Extremities: pulses intact, No edema, normal color, Full ROM - Gastrointestinal General gastrointestinal: Present: soft, non-tender, non-distended, normal bowel sounds - Genitourinary Female genitourinary: normal - Integumentary Integumentary: clear, warm, dry - Musculoskeletal Musculoskeletal: 1, strength equal bilaterally - Neurologic Neurologic: moves all extremities - Psychiatric Psychiatric: memory intact, appropriate mood/affect, intact judgment & insight - Labs CBC & Chem 7: 08/14/18 05:28 08/14/18 05:28 Labs: Abnormal lab results 08/12/18 08/12/18 08/12/18 Range/Units 18:45 19:39 Unknown RBC 2.14 L (3.65-5.03) M/mm3 Hgb 4.5 L* (10.1-14.3) gm/dl Hct 15.5 L* (30.3-42.9) % MCV 73 L (79-97) fl MCH 21 L (28-32) pg MCHC 29 L (30-34) % RDW 21.2 H (13.2-15.2) % Lymph % (Auto) 42.9 H (13.4-35.0) % [place] % (Auto) 8.1 H (0.0-7.3) % Potassium (3.6-5.0) mmol/L Chloride (98-107) mmol/L BUN (7-17) mg/dL Creatinine (0.7-1.2) mg/dL Glucose (65-100) mg/dL Calcium (8.4-10.2) mg/dL Direct Bilirubin (0-0.2) mg/dL AST (5-40) units/L Alkaline Phosphatase (35-129) units/L Albumin (3.9-5) g/dL Urine WBC (Auto) 8.0 H (0.0-6.0) /HPF U Epithel Cells (Auto) 19.0 H (0-13.0) /HPF Crossmatch See Detail 08/12/18 08/13/18 08/13/18 Range/Units Unknown 04:23 04:23 RBC (3.65-5.03) M/mm3 Hgb 6.5 L (10.1-14.3) gm/dl Hct 21.0 L (30.3-42.9) % MCV (79-97) fl MCH (28-32) pg MCHC (30-34) % RDW (13.2-15.2) % Lymph % (Auto) (13.4-35.0) % [place] % (Auto) (0.0-7.3) % Potassium 3.1 L (3.6-5.0) mmol/L Chloride 107.3 H (98-107) mmol/L BUN 3 L 6 L (7-17) mg/dL Creatinine 0.3 L 0.3 L (0.7-1.2) mg/dL Glucose 113 H (65-100) mg/dL Calcium 8.2 L (8.4-10.2) mg/dL Direct Bilirubin 0.5 H (0-0.2) mg/dL AST 77 H (5-40) units/L Alkaline Phosphatase 189 H (35-129) units/L Albumin 3.2 L (3.9-5) g/dL Urine WBC (Auto) (0.0-6.0) /HPF U Epithel Cells (Auto) (0-13.0) /HPF Crossmatch
[2018-08-13] MEDS: TYLENOL PO PRN (19:59)
[2018-08-14 05:48] LABS: Basophils % (Auto) 0.2 % (0.0-1.8); Eosinophils # (Auto) 0.1 K/mm3 (0.0-0.4); Eosinophils % (Auto) 0.6 % (0.0-4.3); Hematocrit 27.9 % (30.3-42.9); Hemoglobin 8.9 gm/dl (10.1-14.3); Lymphocytes # (Auto) 1.1 K/mm3 (1.2-5.4); Lymphocytes % (Auto) 11.4 % (13.4-35.0); Mean Corpuscular HGB Conc 32 % (30-34); Mean Corpuscular Volume 79 fl (79-97); Monocytes # (Auto) 0.6 K/mm3 (0.0-0.8); Monocytes % (Auto) 5.7 % (0.0-7.3); Platelet Count 218 K/mm3 (140-440); Red Blood Count 3.53 M/mm3 (3.65-5.03)
[2018-08-14 06:18] LABS: Alanine Aminotransferase 25 units/L (7-56); Albumin 2.9 g/dL (3.9-5); BUN/Creatinine Ratio 20; Blood Urea Nitrogen 6 mg/dL (7-17); Calcium 8.3 mg/dL (8.4-10.2); Hemolysis Index 1
[2018-08-14] MEDS: PERCOCET 5/325 PO PRN (07:30)
[2018-08-14] MEDS: HABITROL TD SCH (10:10)
[2018-08-14] MEDS: VITAMIN B-1 PO SCH (10:10)
[2018-08-14] MEDS: FOLVITE PO SCH (10:10)
[2018-08-14] MEDS: SODIUM CHLORIDE FLUSH SYRINGE 10 ML IV SCH (10:13)
--- NOTE | 2018-08-14 20:19 | Ultrasound Report ---
PROCEDURE: US ABDOMEN COMPLETE HISTORY: recurrent abdominal pain especially RUQ FINDINGS: Real-time ultrasound the abdomen was performed. The gallbladder wall is very thickened at 0.6 cm. Although gallstones are not seen in this could repr esent acalculus cholecystitis. The visualized portion of pancreas is unremarkable. The aorta proximally measures 1.9 cm which is nor mal. Inferior vena cava is patent with The common duct measures 0.19 cm which is within normal limits. The liver is echogenic likely representing fatty infiltration. The spleen measures 11.4 cm and is the refore normal in size. The right kidney measures 12.1 x 5.4 x 5.6 cm and the left kidney 13.5 x 6.1 x 7.2 cm. There is no ev idence of hydronephrosis. Small right pleural effusion is suspected. IMPRESSION: Gallbladder wall thickening. Although gallstones are not seen in this could represent a calculus chol ecystitis This document is electronically signed by Nikos Bernard MD., Aug 14 2018 09:16:56 PM ET
[2018-08-15] MEDS: SODIUM CHLORIDE FLUSH SYRINGE 10 ML IV SCH (00:03)
--- NOTE | 2018-08-15 09:06 | Discharge Summary ---
Providers - Providers Date of Admission: 08/12/18 22:13 Date of discharge: 08/15/18 Attending physician: DELFINO BUSTILLOS 08/13/18 13:37 Consult to Physician [CONS] Routine Comment: Consulting Provider: SNEHAL JOE Physician Instructions: Reason For Exam: menorrhagia [facility] Hospital[facility] Condition: Fair Hospital course: Acute on chronic blood loss anemia -Secondary to uterine fibroid -Patient received 4 units of PRBCS -We will monitor her H&H To follow with [facility] as outpatient Hypokalemia Corrected Uterine fibroid -Patient is being followed by gynecology on outpatient Abnormal LFT -Likely secondary to alcohol abuse History of alcohol and tobacco abuse -On alcohol withdrawal prophylaxis -Patient counseled on cessation Abdominal ultrasound shows gallbladder thickening and no cholelithiasis DVT prophylaxis with SCD [facility] consult requested for fibroids and menorrhagia as outpatient Disposition: TO HOME OR SELFCARE Core Measure Documentation - Palliative Care Palliative Care/ Comfort Measures: Not Applicable - Core Measures Any of the following diagnoses?: none Exam - Constitutional Vitals: Temp Pulse Resp BP Pulse Ox 99.0 F 68 14 143/96 95 08/15/18 05:45 08/15/18 05:45 08/15/18 05:45 08/15/18 05:45 08/15/18 05:45 General appearance: Present: no acute distress, well-nourished, other (pale mucous membranes) - EENT Eyes: Present: PERRL ENT: hearing intact, clear oral mucosa - Neck Neck: Present: supple, normal ROM - Respiratory Respiratory effort: normal Respiratory: bilateral: CTA - Cardiovascular Heart rate: 88 Rhythm: regular Heart Sounds: Present: S1 & S2. Absent: rub, click - Extremities Extremities: no ischemia, pulses intact, pulses symmetrical, No edema Peripheral Pulses: within normal limits - Abdominal General gastrointestinal: Present: soft, non-tender, non-distended, normal bowel sounds Female genitourinary: Present: normal - Integumentary Integumentary: Present: clear, warm, dry - Musculoskeletal Musculoskeletal: gait normal, strength equal bilaterally - Psychiatric Psychiatric: appropriate mood/affect, intact judgment & insight - Neurologic Neurologic: CNII-XII intact, moves all extremities - Allied Health Allied health notes reviewed: nursing, case management Plan Activity: no restrictions Diet: regular [facility] - 7 Days CACHORRO HEARD MD [Staff Physician] - 7 Days
--- NOTE | 2018-08-15 12:06 | Ultrasound Report ---
PROCEDURE: US PELVIC COMPLETE, US TRANSVAGINAL TECHNIQUE: Transverse longitudinal sonograms obtained with jose scale sonography. Transabdominal and transvaginal ultrasound. HISTORY: menorrhagia; anemia COMPARISONS: Pelvic ultrasound September 04, 2016 FINDINGS: Uterus measures 8.6 x 5.1 x 9.4 cm. Anteverted uterus. Multiple fibroids identified. Right fundal fibroid measures 4.6 x 3.3 x 3.5 cm. Left fundal fibroid measures 5.4 x 4.5 x 5.6 cm. Lower uterine segment fibroid measures 6.1 x 4.6 x 5.7 cm. Submucosal fibroid measuring 3.3 x 2.3 x 2.9 cm. Endometrial thickness 0.8 cm which is normal for patient age. Right ovary measures 4.4 x 2.5 x 3.4 cm. Left ovary measures 4.0 x 1.7 x 3.2 cm Dominant follicle noted right ovary measuring 1.7 cm Ovaries demonstrate blood flow with Doppler No free fluid IMPRESSION: Multiple uterine fibroids as above. Majority of fibroids are intramural. There is one submucosal fibr oid Adnexa unremarkable. This document is electronically signed by Juan Locke MD., August 15 2018 01:04:51 PM ET
[2018-08-15 13:55] VITALS: BP 146/92
[2018-08-15] MEDS: FOLVITE PO SCH (14:22)
[2018-08-15] MEDS: HABITROL TD SCH (14:22)
[2018-08-15] MEDS: VITAMIN B-1 PO SCH (14:22)
== END 2018-08-15 13:05 | disposition home or self-care (01) | DRG 760 ==
LOC: ED 18:12 → 3A 22:13
PROVIDERS: ADMIT Internal Medicine; ATTEND Internal Medicine
PROC: 30233N1 Transfusion of Nonautologous Red Blood Cells into Peripheral Vein, Percutaneous Approach (ICD-10-PCS; principal; 2018-08-12)
DX: D25.9 Leiomyoma of uterus, unspecified (principal); D62 Acute posthemorrhagic anemia; F17.210 Nicotine dependence, cigarettes, uncomplicated; F10.10 Alcohol abuse, uncomplicated; E87.6 Hypokalemia; K82.8 Other specified diseases of gallbladder; R94.5 Abnormal results of liver function studies; Y90.9 Presence of alcohol in blood, level not specified; F12.90 Cannabis use, unspecified, uncomplicated; Z83.3 Family history of diabetes mellitus; Z82.49 Family history of ischemic heart disease and other diseases of the circulatory system; Z88.5 Allergy status to narcotic agent; Z71.6 Tobacco abuse counseling
CPT/HCPCS: 36415; 76700; 76830; 76856; 80048; 80053; 80076; 81001; 83735; 84703; 85014; 85018; 85025; 85610; 85730; 86850; 86900; 86901; 86920; 99291; 99406; G0378; J7040; P9016